=== PATIENT | male | born 1930 | race Caucasian/White ===

== ENCOUNTER 2016-04-18 10:39 | Emergency (ER) | payer OTHER ==
[2016-04-18] MEDS ORDERED: TETANUS AND DIPHTHERIA TOXOID 0.5 ML DISP.SYRIN IM ONE (10:50)
[2016-04-18 10:53] VITALS: TEMP 97.7; BMI 27.1
--- NOTE | 2016-04-18 11:08 | PDOC ---
History of Present Illness - General Chief Complaint: Injury Stated Complaint: FALL Time Seen by Provider: 04/18/16 10:49 History Source: Patient Exam Limitations: No Limitations - History of Present Illness Initial Comments: CHIEF COMPLAINT: 86 y/o afebrile male with PMH prostate problem BIB EMS after trip and fall with nose swelling and laceration. HISTORY OF PRESENT ILLNESS: The patient states he tripped on uneven pavement and fell, hitting his nose. He has nose pain with bleeding to external nose. He denies LOC, neck pain, changes in vision, n/v/d, loose teeth, bleeding from ears, dizziness, palpitations, CP, SOB, abd pain, back pain. He is refusing pain medication at this time. Vital signs on arrival are within normal limits. REVIEW OF SYSTEMS: GENERAL/CONSTITUTIONAL: No fever/chills. No weakness. No weight change. HEAD, EYES, EARS, NOSE AND THROAT: No change in vision. No ear pain or discharge. No sore throat. +nose pain and bleeding CARDIOVASCULAR: No chest pain or shortness of breath. RESPIRATORY: No cough, wheezing, or hemoptysis. GASTROINTESTINAL: No abd pain, nausea, vomiting, diarrhea. GENITOURINARY: No dysuria, frequency, or change in urination. MUSCULOSKELETAL: No joint or muscle swelling or pain. No neck or back pain. SKIN: No rash or easy bruising. NEUROLOGIC: No headache, vertigo, loss of consciousness, or loss of sensation. PHYSICAL EXAM: GENERAL: The patient is awake, alert, and fully oriented, in no acute distress. He is well appearing and pleasant. HEAD: Normal with no signs of trauma. ENT: Pupils equal, round and reactive to light, extraocular movements intact, sclera anicteric, conjunctiva clear. No hemotympanum b/l. TTP of bridge and base of nose with significant swelling. TTP of left orbit without crepitus or deformity. No raccoon eyes. Dried blood in b/l nares. very small irregular lac to left bridge of nose with active bleeding. Entire anterior nose is covered in abrasions. NECK: No midline cervical spine TTP or step offs. Full flexion and extension of cervical spine. LUNGS: Clear to auscultation bilaterally. Normal excursion. No respiratory distress or use of accessory muscles. CV: RRR, S1/S2, no MRG. Cap refill < 2 sec. ABDOMEN: Soft, non-distended, non-tender even to deep palpation, no hepatomegaly or splenomegaly, no masses. EXTREMITIES: Minimal swelling and TTP of right hand. NEUROLOGICAL: Normal speech, normal gait. CN II-XII grossly intact. PSYCH: Normal mood, normal affect. SKIN: Warm, dry, normal turgor, no rashes or lesions noted. Past History - Past Medical History Allergies/Adverse Reactions: Allergies Allergy/AdvReac Type Severity Reaction Status Date / Time No Known Allergies Allergy Verified 04/18/16 10:42 Home Medications: Ambulatory Orders Aspirin [ASA -] 81 mg PO DAILY 04/18/16 Oxycodone HCl/Acetaminophen [Percocet 5-325 mg Tablet] 1 tab PO Q6H #5 tablet MDD 3 04/18/16 Oxymetazoline 0.05% Nasal Soln [Afrin -] 2 spray NS BID #1 spraybtl 04/18/16 Procedures - Laceration/Wound Repair Nose Wound Length: to 2.5 cm Wound Explored: clean Wound's Depth, Shape: irregular Irrigated w/ Saline: Yes Betadine Prep: Yes Wound Repaired With: Sutures Suture Size/Type: 4:0 Number of Sutures: 1 Medical Decision Making - Medical Decision Making A/P: 86 y/o male with facial trauma s/p trip and fall. No LOC. No nausea. No neck pain. Plan is as follows: 1. Head CT 2. Facial bones CT 3. Tetanus 4. Xray right hand The patient is refusing pain medication at this time. CT scan IMPRESSION: No evidence of acute intracranial pathology. Bilateral nasal bone fractures right hand xray IMPRESSION: No acute pathology. Gave patient his results. applied 1 suture to bridge of nose to close laceration. Applied bacitracin to entire nose. Instructed the patient to avoid blowing his nose, use afrin spray to help with nasal congestion, f/u with Dr. Browning within 3 days, apply ice to his nose/eyes and return to the ER or his PCP for suture removal in 5 days. The patient verbalizes understanding of all instructions, has no further questions and is awaiting discharge. *DC/Admit/Observation/Transfer Diagnosis at time of Disposition: Nasal bone fractures - Discharge Dispostion Disposition: HOME Condition at time of disposition: Improved - Prescriptions Prescriptions: Oxymetazoline 0.05% Nasal Soln [Afrin -] 2 spray NS BID #1 spraybtl Oxycodone HCl/Acetaminophen [Percocet 5-325 mg Tablet] 1 tab PO Q6H #5 tablet MDD 3 - Referrals Referrals: Gaurav Reina MD [Primary Care Provider] - Pedro Browning MD [Staff Physician] - - Patient Instructions Printed Discharge Instructions: DI for Closed Head Injury, DI for Nose Fracture Additional Instructions: Discharge Instructions: -Take Tylenol for pain every 4 hours if needed; take Percocet at night for break through pain (this will cause drowsiness) -use Afrin nasal spray to help with nasal congestion -Do not blow your nose -Please call Dr. Browning tomorrow morning to schedule follow up appointment within 3 days -Return to the ER in 5 days to have suture removed -Keep nose clean and dry
--- NOTE | 2016-04-18 11:10 | PDOC ---
*Physical Exam - Vital Signs Last Vital Signs Temp Pulse Resp BP Pulse Ox 97.7 F 72 18 145/77 99 04/18/16 10:43 04/18/16 10:43 04/18/16 10:43 04/18/16 10:43 04/18/16 10:43 ED Treatment Course - Medications Given in the ED: ED Medications Discontinued Medications Generic Name Dose Route Start Last Admin Trade Name Freq PRN Reason Stop Dose Admin Tetanus/Diphtheria Toxoids Adsorbed 0.5 ml 04/18/16 10:50 04/18/16 11:00 Decavac - IM 04/18/16 10:51 0.5 ml .ONCE ONE Administration Medical Decision Making - Medical Decision Making 04/18/16 11:09 Pt seen by the Advanced Practice Provider under my direct supervision Ancillary studies reviewed I agree with plan as outlined by the Advanced Practice Provider ALVA Paige *DC/Admit/Observation/Transfer Diagnosis at time of Disposition: Nasal bone fractures - Discharge Dispostion Disposition: HOME Condition at time of disposition: Improved - Prescriptions Prescriptions: Oxymetazoline 0.05% Nasal Soln [Afrin -] 2 spray NS BID #1 spraybtl Oxycodone HCl/Acetaminophen [Percocet 5-325 mg Tablet] 1 tab PO Q6H #5 tablet MDD 3 - Referrals Referrals: Gaurav Reina MD [Primary Care Provider] - Pedro Browning MD [Staff Physician] - - Patient Instructions Printed Discharge Instructions: DI for Nose Fracture, DI for Closed Head Injury Additional Instructions: Discharge Instructions: -Take Tylenol for pain every 4 hours if needed; take Percocet at night for break through pain (this will cause drowsiness) -use Afrin nasal spray to help with nasal congestion -Do not blow your nose -Please call Dr. Browning tomorrow morning to schedule follow up appointment within 3 days -Return to the ER in 5 days to have suture removed -Keep nose clean and dry
[2016-04-18] MEDS ORDERED: IBUPROFEN 800 MG/8 ML IJ IVPB ONE (11:26)
[2016-04-18 13:09] VITALS: BP 155/84; PULSE 65
== END 2016-04-18 13:09 | disposition home or self-care (01) ==
LOC: SUPCPDRO 10:39 → JER 10:39
PROC: 09QKXZZ Repair Nasal Mucosa and Soft Tissue, External Approach (ICD-10-PCS; principal; 2016-04-18)
PROC: 3E0234Z Introduction of Serum, Toxoid and Vaccine into Muscle, Percutaneous Approach (ICD-10-PCS; 2016-04-18)
DX: S02.2XXA Fracture of nasal bones, initial encounter for closed fracture (principal); S01.21XA Laceration without foreign body of nose, initial encounter; W18.39XA Other fall on same level, initial encounter; Y93.89 Activity, other specified; Y92.480 Sidewalk as the place of occurrence of the external cause
CPT/HCPCS: 12011-25; 70450-TC; 70486-TC; 73130-TC-RT; 90471; 90715; 99283-25

== ENCOUNTER 2017-07-05 08:46 | Day surgery (SDC) | payer OTHER ==
[2017-07-05] MEDS ORDERED: IMMUNE GLOB,GAM CAPRYLATE(IGG) 20 GM IVPB ONE (09:30)
[2017-07-05 12:29] VITALS: TEMP 97.9
[2017-07-05 12:46] VITALS: BP 104/70; PULSE 57
== END 2017-07-05 12:49 | disposition home or self-care (01) ==
LOC: JINFUSION 08:46
PROVIDERS: ATTEND Psychiatry & Neurology Psychiatry
PROC: 3E033GC Introduction of Other Therapeutic Substance into Peripheral Vein, Percutaneous Approach (ICD-10-PCS; principal; 2017-07-05)
DX: G61.81 Chronic inflammatory demyelinating polyneuritis (principal)
CPT/HCPCS: 96365; 96366; J1561

== ENCOUNTER 2017-07-06 08:00 | Day surgery (SDC) | payer OTHER ==
[2017-07-06] MEDS ORDERED: IMMUNE GLOB,GAM CAPRYLATE(IGG) 40 GM, IMMUNE GLOBULIN (IgG) 10 GM IVPB ONE (09:00)
[2017-07-06 14:25] VITALS: TEMP 97.8
[2017-07-06 15:17] VITALS: BP 122/68; PULSE 53
== END 2017-07-06 15:20 | disposition home or self-care (01) ==
LOC: JINFUSION 08:00
PROVIDERS: ATTEND Psychiatry & Neurology Psychiatry
PROC: 3E033GC Introduction of Other Therapeutic Substance into Peripheral Vein, Percutaneous Approach (ICD-10-PCS; principal; 2017-07-06)
DX: G61.81 Chronic inflammatory demyelinating polyneuritis (principal)
CPT/HCPCS: 96365; 96366; J1561

== ENCOUNTER 2017-07-07 07:42 | Day surgery (SDC) | payer OTHER ==
[2017-07-07] MEDS ORDERED: IMMUNE GLOB GAM CAPRYLATE IVPB ONE (08:00)
[2017-07-07 14:54] VITALS: BP 131/81; PULSE 53; TEMP 98.1
== END 2017-07-07 15:04 | disposition home or self-care (01) ==
LOC: JINFUSION 07:42
PROVIDERS: ATTEND Psychiatry & Neurology Psychiatry
PROC: 3E033GC Introduction of Other Therapeutic Substance into Peripheral Vein, Percutaneous Approach (ICD-10-PCS; principal; 2017-07-07)
DX: G61.81 Chronic inflammatory demyelinating polyneuritis (principal)
CPT/HCPCS: 96365; 96366; J1561

== ENCOUNTER 2017-10-12 09:10 | Day surgery (SDC) | payer OTHER ==
[2017-10-12] MEDS ORDERED: IMMUNE GLOBULIN IVPB SCH (10:00)
[2017-10-12 13:13] VITALS: BP 117/66; PULSE 78; TEMP 98
== END 2017-10-12 13:37 | disposition home or self-care (01) ==
LOC: JINFUSION 09:10
PROVIDERS: ATTEND Psychiatry & Neurology Psychiatry
PROC: 3E033GC Introduction of Other Therapeutic Substance into Peripheral Vein, Percutaneous Approach (ICD-10-PCS; principal; 2017-10-12)
DX: G61.81 Chronic inflammatory demyelinating polyneuritis (principal)
CPT/HCPCS: 96365; 96366; J1561

== ENCOUNTER 2017-10-13 09:00 | Day surgery (SDC) | payer OTHER ==
[2017-10-13] MEDS ORDERED: IMMUNE GLOB,GAM CAPRYLATE(IGG) 60 GM/600 ML VIA IVPB ONE (09:30)
[2017-10-13 11:42] VITALS: BP 127/84; PULSE 61; TEMP 97.9
== END 2017-10-13 13:30 | disposition home or self-care (01) ==
LOC: JINFUSION 09:00
PROVIDERS: ATTEND Psychiatry & Neurology Psychiatry
PROC: 3E033GC Introduction of Other Therapeutic Substance into Peripheral Vein, Percutaneous Approach (ICD-10-PCS; principal; 2017-10-13)
DX: G61.81 Chronic inflammatory demyelinating polyneuritis (principal)
CPT/HCPCS: 96365; 96366

== ENCOUNTER 2017-11-08 18:12 | Observation (INO) | payer OTHER ==
[2017-11-08 19:20] VITALS: BMI 27.1
--- NOTE | 2017-11-08 19:38 | PDOC ---
History of Present Illness - General History Source: Patient Exam Limitations: No Limitations - History of Present Illness Initial Comments: 11/08/17 20:13 The patient is a 87 year old male, with a significant past medical history of prostate problem, neuropathy, and vertigo, who presents to the emergency department s/p sudden onset of dizziness while getting out of his car this afternoon. He states he felt like he was falling and then fell onto the [place] of his car. He denies LOC or head injury. He states he had to make multiple stops from his car to his apartment for fear of falling secondary to dizziness. He states he also developed nausea with associated retching, but denies emesis. He states he was not dizzy while driving. The patient also reports a headache which is not a typical associated symptom for his prior vertigo experiences. The patient denies chest pain, shortness of breath. The patient denies fever, chills, vomit, diarrhea and constipation. The patient denies dysuria, frequency , urgency and hematuria. Allergies: NKDA PCP: Dr. Reina <Jenn Law - Last Filed: 11/08/17 20:13> <Therese Landa - Last Filed: 11/08/17 23:17> - General Chief Complaint: Lightheaded Stated Complaint: NAUSEA Time Seen by Provider: 11/08/17 19:38 Past History <Jenn Law - Last Filed: 11/08/17 20:13> - Past Medical History COPD: No Other medical history: vertigo - Surgical History Abdominal Surgery: Yes Appendectomy: Yes - Suicide/Smoking/Psychosocial Hx Smoking History: Unknown if ever smoked Have you smoked in the past 12 months: No If you are a former smoker, when did you quit?: 1986 Information on smoking cessation initiated: No Hx Alcohol Use: No Drug/Substance Use Hx: No Substance Use Type: None <Therese Landa - Last Filed: 11/08/17 23:17> - Past Medical History Allergies/Adverse Reactions: Allergies Allergy/AdvReac Type Severity Reaction Status Date / Time No Known Allergies Allergy Verified 11/08/17 19:20 Home Medications: Ambulatory Orders Omeprazole 40 mg PO DAILY 07/05/17 Tamsulosin HCl 0.4 mg PO DAILY 07/05/17 Review of Systems - Review of Systems Able to Perform ROS?: Yes Comments:: 11/08/17 20:13 GENERAL/CONSTITUTIONAL: No fever or chills. No weakness. HEAD, EYES, EARS, NOSE AND THROAT: No change in vision. No ear pain or discharge. No sore throat. GASTROINTESTINAL: (+) nausea, No vomiting, diarrhea or constipation. GENITOURINARY: No dysuria, frequency, or change in urination. CARDIOVASCULAR: No chest pain or shortness of breath. RESPIRATORY: No cough, wheezing, or hemoptysis. MUSCULOSKELETAL: No joint or muscle swelling or pain. No neck or back pain. SKIN: No rash NEUROLOGIC: (+) headache and vertigo, No loss of consciousness, or change in strength/sensation. ENDOCRINE: No increased thirst. No abnormal weight change. HEMATOLOGIC/LYMPHATIC: No anemia, easy bleeding, or history of blood clots. ALLERGIC/IMMUNOLOGIC: No hives or skin allergy. <Jenn Law - Last Filed: 11/08/17 20:13> *Physical Exam - Vital Signs Last Vital Signs Temp Pulse Resp BP Pulse Ox 97.9 F 50 L 16 144/70 100 11/08/17 18:16 11/08/17 18:16 11/08/17 18:16 11/08/17 18:16 11/08/17 18:16 - Physical Exam Comments: 11/08/17 20:13 Constitutional: Awake, alert, oriented. No acute distress. Head: Normocephalic. Atraumatic Eyes: (+) mild right horizontal nystagmus PERRL. EOMI. Conjunctivae are not pale. ENT: Mucous membranes are moist and intact. Posterior pharynx without exudates or erythema. Uvula midline. Neck: Supple. Full ROM. No lymphadenopathy. Cardiovascular: Regular rate. Regular rhythm. S1, S2 regular. Distal pulses are 2+ and symmetric. Pulmonary/Chest: No evidence of respiratory distress. Clear to auscultation bilaterally No wheezing, rales or rhonchi. Abdominal: Soft and non-distended. There is no tenderness. No rebound, guarding or rigidity. No organomegaly. No palpable masses. Good bowel sounds. Back: No CVA tenderness. Musculoskeletal: No edema. No cyanosis. No clubbing. Full range of motion in all extremities. Nocalf tenderness. Radial/pedal pulses are intact and 2+ bilaterally Skin: Skin is warm and dry. No petechiae. No purpura. Neurological: (+) decreased sensation to bilateral lower extremities likely old due to neuropathy Hx. Alert and oriented to person, place, and time. Cranial nerves II-XII are grossly intact. Normal speech. Strength is grossly symmetric. No sensory deficits. Psychiatric: Good eye contact. Normal interaction, affect and behavior. <Jenn Law - Last Filed: 11/08/17 20:13> - Vital Signs Last Vital Signs Temp Pulse Resp BP Pulse Ox 97.9 F 50 L 16 144/70 100 11/08/17 18:16 11/08/17 18:16 11/08/17 18:16 11/08/17 18:16 11/08/17 18:16 <Therese Landa - Last Filed: 11/08/17 23:17> Heart Score/ECG Review - ECG Intrepretation Comment:: 11/08/17 23:16 sinus sarahy at 58, nl axis, nl interval, no acute st/t wave findings <Therese Landa - Last Filed: 11/08/17 23:17> ED Treatment Course - LABORATORY CBC & Chemistry Diagram: 11/08/17 20:39 11/08/17 20:39 <Therese Landa - Last Filed: 11/08/17 23:17> Medical Decision Making - Medical Decision Making 11/08/17 20:02 a/p: 87yo male with hx of vertigo presents today for an acute attack of vertigo and headache -pt neuro intact -R horizontal mild nystagmus -hx of vertigo but never had vertigo with a cast -will send labs, head ct, ekg, cxr, ua -neuro is Dr. Webster -PMD is Dr. Reina -pt currently vertiginous and nauseated -dry heaving in ED -will medicate for headache, vertigo, nausea -will monitor and reassess -currently npo given n/v -will most likely need to stay in obs pending head ct, new headache, and vertigo for eval of posterior circulation eval and poss MRI -will discuss with neuro pending head ct -fam at the bedside 11/08/17 22:21 -re-eval: still with dry heaving will remedicate still c/o dizziness will keep in obs pending neuro eval in the am consult placed to neurology 11/08/17 23:16 case discussed with Mary from [facility] who accepts pt to service <Therese Landa - Last Filed: 11/08/17 23:17> *DC/Admit/Observation/Transfer - Attestations Scribe Attestion: 11/08/17 20:14 Documentation prepared by Jenn Law, acting as medical case worker for Therese Landa DO <Jenn Law - Last Filed: 11/08/17 20:13> - Discharge Dispostion Decision to Admit order: Yes - Attestations Physician Attestion: 11/08/17 20:05 I, Dr. Therese Landa DO, attest that this document has been prepared under my direction and personally reviewed by me in its entirety. I further attest, that it accurately reflects all work, treatment, procedures and medical decision -making performed by me. <Therese Landa - Last Filed: 11/08/17 23:17> Diagnosis at time of Disposition: Dizziness, Nausea and vomiting - Discharge Dispostion Condition at time of disposition: Fair - Referrals Referrals: Gaurav Reina MD [Primary Care Provider] - - Patient Instructions - Post Discharge Activity
[2017-11-08] MEDS ORDERED: METOCLOPRAMIDE HCL INJECTION 10 MG/2 ML VIAL IVPUSH ONE (19:50)
[2017-11-08] MEDS ORDERED: SODIUM CHLORIDE 0.9% 1000 ML INFUS.BAG IV ONE (19:50)
[2017-11-08] MEDS ORDERED: MECLIZINE HCL 12.5 MG TABLET PO ONE (19:50)
[2017-11-08] MEDS ORDERED: METOCLOPRAMIDE HCL INJECTION 10 MG/2 ML VIAL ONE (20:52)
[2017-11-08] MEDS ORDERED: MECLIZINE HCL 12.5 MG TABLET ONE (20:52)
[2017-11-08 20:59] LABS: BASO % 0.3 % (0-2.0); EOS % 0.2 % (0-4.5); HEMATOCRIT 37.4 % (35.4-49); HEMOGLOBIN 13.3 GM/dL (11.7-16.9); LYMPH % 7.2 % (8-40); MCH 31.7 pg (25.7-33.7); MCHC 35.6 g/dl (32.0-35.9); MEAN CELL VOLUME 89.1 fl (80-96); MEAN PLT VOLUME 8.3 fl (7.5-11.1); MONO % 5.5 % (3.8-10.2); NEUT % 86.8 % (42.8-82.8); PLATELET COUNT 197 K/MM3 (134-434); RBC 4.19 M/mm3 (4.00-5.60); RDW 16.4 % (11.9-15.9); WHITE BLOOD COUNT 9.1 K/mm3 (4.0-10.0)
[2017-11-08 21:25] LABS: INR 1.05 (0.83-1.09); PROTHROMBIN TIME (PATIENT) 11.9 SEC (9.7-13.0)
[2017-11-08 21:43] LABS: ALBUMIN 3.7 g/dl (3.4-5.0); ANION GAP 9 MMOL/L (8-16); BLOOD UREA NITROGEN 17 mg/dL (7-18); CHLORIDE 103 mmol/L (98-107); CO2 27 mmol/L (21-32); CREATININE 1.1 mg/dL (0.7-1.3); GLUCOSE,RANDOM 108 mg/dL (74-106); MAGNESIUM 2.1 mg/dL (1.8-2.4); SGOT/AST 27 U/L (15-37); SGPT/ALT 33 U/L (12-78); SODIUM 139 mmol/L (136-145)
[2017-11-08 21:47] LABS: ALK PHOS 52 U/L (45-117); BILIRUBIN,TOTAL 1.2 mg/dL (0.2-1.0); TOT PROT 7.5 g/dl (6.4-8.2)
[2017-11-08] MEDS ORDERED: ONDANSETRON 4 MG/2 ML VIAL IVPUSH ONE (22:20)
[2017-11-08] MEDS ORDERED: ONDANSETRON 4 MG/2 ML VIAL ONE (22:22)
--- NOTE | 2017-11-08 23:21 | HP ---
CHIEF COMPLAINT: PCP: HISTORY OF PRESENT ILLNESS: ER course was notable for: (1) (2) (3) Recent Travel: PAST MEDICAL HISTORY: PAST SURGICAL HISTORY: Social History: Smoking: Alcohol: Drugs: Family History: Allergies No Known Allergies Allergy (Verified 11/08/17 19:20) HOME MEDICATIONS: Home Medications Medication Instructions Recorded Omeprazole 40 mg PO DAILY 07/05/17 Tamsulosin HCl 0.4 mg PO DAILY 07/05/17 REVIEW OF SYSTEMS CONSTITUTIONAL: Absent: fever, chills, diaphoresis, generalized weakness, malaise, loss of appetite, weight change HEENT: Absent: rhinorrhea, nasal congestion, throat pain, throat swelling, difficulty swallowing, mouth swelling, ear pain, eye pain, visual changes CARDIOVASCULAR: Absent: chest pain, syncope, palpitations, irregular heart rate, lightheadedness , peripheral edema RESPIRATORY: Absent: cough, shortness of breath, dyspnea with exertion, orthopnea, wheezing, stridor, hemoptysis GASTROINTESTINAL: Absent: abdominal pain, abdominal distension, nausea, vomiting, diarrhea, constipation, melena, hematochezia GENITOURINARY: Absent: dysuria, frequency, urgency, hesitancy, hematuria, flank pain, genital pain MUSCULOSKELETAL: Absent: myalgia, arthralgia, joint swelling, back pain, neck pain SKIN: Absent: rash, itching, pallor HEMATOLOGIC/IMMUNOLOGIC: Absent: easy bleeding, easy bruising, lymphadenopathy, frequent infections ENDOCRINE: Absent: unexplained weight gain, unexplained weight loss, heat intolerance, cold intolerance NEUROLOGIC: Absent: headache, focal weakness or paresthesias, dizziness, unsteady gait, seizure, mental status changes, bladder or bowel incontinence PSYCHIATRIC: Absent: anxiety, depression, suicidal or homicidal ideation, hallucinations. PHYSICAL EXAMINATION Vital Signs - 24 hr 11/08/17 11/08/17 18:16 23:06 Temperature 97.9 F Pulse Rate 50 L Pulse Rate [ 61 Apical] Respiratory 16 18 Rate Blood Pressure 144/70 Blood Pressure 138/72 [Right Arm] O2 Sat by Pulse 100 100 Oximetry (%) GENERAL: Awake, alert, and fully oriented, in no acute distress. HEAD: Normal with no signs of trauma. EYES: Pupils equal, round and reactive to light, extraocular movements intact, sclera anicteric, conjunctiva clear. No lid lag. EARS, NOSE, THROAT: Ears normal, nares patent, oropharynx clear without exudates. Moist mucous membranes. NECK: Normal range of motion, supple without lymphadenopathy, JVD, or masses. LUNGS: Breath sounds equal, clear to auscultation bilaterally. No wheezes, and no crackles. No accessory muscle use. HEART: Regular rate and rhythm, normal S1 and S2 without murmur, rub or gallop. ABDOMEN: Soft, nontender, not distended, normoactive bowel sounds, no guarding, no rebound, no masses. No hepatomegaly or splenomegaly. MUSCULOSKELETAL: Normal range of motion at all joints. No bony deformities or tenderness. No CVA tenderness. UPPER EXTREMITIES: 2+ pulses, warm, well-perfused. No cyanosis. No clubbing. No peripheral edema. LOWER EXTREMITIES: 2+ pulses, warm, well-perfused. No calf tenderness. No peripheral edema. NEUROLOGICAL: Cranial nerves II-XII intact. Normal speech. Normal gait. PSYCHIATRIC: Cooperative. Good eye contact. Appropriate mood and affect. SKIN: Warm, dry, normal turgor, no rashes or lesions noted, normal capillary refill. Laboratory Results - last 24 hr 11/08/17 11/08/17 11/08/17 20:39 20:39 20:39 WBC 9.1 RBC 4.19 Hgb 13.3 Hct 37.4 MCV 89.1 MCH 31.7 MCHC 35.6 RDW 16.4 H Plt Count 197 MPV 8.3 Absolute Neuts (auto) 7.9 Neutrophils % 86.8 H D Lymphocytes % 7.2 L D Monocytes % 5.5 Eosinophils % 0.2 D Basophils % 0.3 Nucleated RBC % 0 PT with INR 11.90 INR 1.05 Sodium 139 Potassium 4.0 Chloride 103 Carbon Dioxide 27 Anion Gap 9 BUN 17 Creatinine 1.1 Creat Clearance w eGFR > 60 Random Glucose 108 H D Calcium 9.0 Magnesium 2.1 Total Bilirubin 1.2 H AST 27 ALT 33 Alkaline Phosphatase 52 Creatine Kinase 122 Troponin I < 0.02 Total Protein 7.5 Albumin 3.7 ASSESSMENT/PLAN: Hospitalist Screening - Colonoscopy Questionnaire Colonoscopy Questionnaire: Colonoscopy Questionnaire
[2017-11-08] MEDS ORDERED: ONDANSETRON 4 MG/2 ML VIAL IVPUSH PRN (23:24)
[2017-11-08] MEDS: DEXTROSE 5%-0.45% SALINE 1,000 ML IV SCH (23:47)
[2017-11-09 01:33] LABS: URINE APPEARANCE CLEAR; URINE BILIRUBIN NEGATIVE (<2.0 mg/dL); URINE COLOR LTYELLOW; URINE GLUCOSE (UA) NEGATIVE (NEGATIVE); URINE KETONE NEGATIVE (NEGATIVE); URINE LEUK ESTERASE NEGATIVE (NEGATIVE); URINE NITRITE NEGATIVE (NEGATIVE); URINE PROTEIN NEGATIVE (NEGATIVE); URINE UROBILINOGEN NEGATIVE mg/dL (0.2-1.0)
[2017-11-09] MEDS: DEXTROSE 5%-0.45% SALINE 1,000 ML IV SCH (01:54)
[2017-11-09 07:56] LABS: BASO % 0.5 % (0-2.0); EOS % 1.2 % (0-4.5); HEMOGLOBIN 12.6 GM/dL (11.7-16.9); LYMPH % 18.3 % (8-40); MCH 30.7 pg (25.7-33.7); MCHC 34.2 g/dl (32.0-35.9); MEAN CELL VOLUME 89.9 fl (80-96); MEAN PLT VOLUME 8.2 fl (7.5-11.1); MONO % 9.1 % (3.8-10.2); NEUT % 70.9 % (42.8-82.8); PLATELET COUNT 176 K/MM3 (134-434); RBC 4.11 M/mm3 (4.00-5.60); RDW 16.1 % (11.9-15.9)
[2017-11-09 08:43] LABS: CHLORIDE 107 mmol/L (98-107); POTASSIUM 4.1 mmol/L (3.5-5.1); SODIUM 141 mmol/L (136-145)
--- NOTE | 2017-11-09 08:55 | CON.NEURO ---
Consult - Alcohol/Substance Use Hx Alcohol Use: No - Smoking History Smoking history: Former smoker Have you smoked in the past 12 months: No If you are a former smoker, when did you quit?: 1986 Home Medications - Allergies Allergies/Adverse Reactions: Allergies Allergy/AdvReac Type Severity Reaction Status Date / Time No Known Allergies Allergy Verified 11/08/17 19:20 - Home Medications Home Medications: Ambulatory Orders Omeprazole 40 mg PO DAILY 07/05/17 Tamsulosin HCl 0.4 mg PO DAILY 07/05/17 Physical Exam-Neuro Vital Signs: Vital Signs Temperature 98.3 F 11/09/17 06:00 Pulse Rate 73 11/09/17 06:00 Respiratory Rate 18 11/09/17 06:00 Blood Pressure 115/75 11/09/17 06:00 O2 Sat by Pulse Oximetry (%) 99 11/09/17 00:49 Labs: CBC, BMP 11/09/17 06:30 11/09/17 06:30 INR, PTT INR 1.05 (0.83-1.09) 11/08/17 20:39 Assessment/Plan CC Feeling of vertigo and imbalance HPI 87 yea rold male hstory of BPH, Neuropathy ( etiology unknown and was treated with IVIG) . Patient came to hospital for severe imbalance feeling. He describe as falling and feeling of imbalance. He has ct head done and it was unremarkable. He did have nausea but no vomiting. He was given zofran and meclizine. He is feeling better. He has similar symptom sin past but not this bad. PMH As above. PSH,ROS,FH,SH reviewed in chart Allergies: NKDA PCP: Dr. Reina - Past Medical History Allergies/Adverse Reactions: Allergies Allergy/AdvReac Type Severity Reaction Status Date / Time No Known Allergies Allergy Verified 11/08/17 19:20 Home Medications: Ambulatory Orders Omeprazole 40 mg PO DAILY 07/05/17 Tamsulosin HCl 0.4 mg PO DAILY 07/05/17 Neurological Examination Alert oriented x 3 EOMI, mild nystagmus on side to side eye movements was seen, pupils reactive no face asymmetry moving all extremity FTN is normal, strength is 5/5 all ext there is diminished sensation below knee and loss of knee and ankle reflex bilateraly CT head is unremarkable Assessment- Most likley BPPV, and it is getting better with zofran and meclizine Plan- suggest to continue Meclizine - He is getting better - primary team has planned MRI of brain and once mri of brain is normal and he is feeling better he can be discharged -PT will continue to follow with primray, feel free to call if any question Thanking you so much Car Berger MD
[2017-11-09 09:20] LABS: ANION GAP 7 MMOL/L (8-16); BLOOD UREA NITROGEN 14 mg/dL (7-18); CALCIUM 8.7 mg/dL (8.5-10.1); CO2 27 mmol/L (21-32); CREATININE 1.1 mg/dL (0.7-1.3); GLUCOSE,RANDOM 99 mg/dL (74-106)
--- NOTE | 2017-11-09 10:59 | PN ---
Progress Note (short form) - Note Progress Note: patient seen this am feels much better as per patient dizziness /nausea, vomiting - resolved Vital Signs Temp 98.3 F 11/09/17 06:00 Pulse 73 11/09/17 06:00 Resp 18 11/09/17 06:00 BP 115/75 11/09/17 06:00 Pulse Ox 99 11/09/17 00:49 Intake & Output 11/08/17 11/08/17 11/09/17 11:59 23:59 11:59 Intake Total 680 Balance 680 Weight 200 lb 200 lb Intake: IV 280 D5-1/2Ns - 1,000 ml @ 42 280 mls/hr IV ASDIR MAINE Rx#: [id number] Oral 400 Other: Voiding Method Urinal Urinal Height 6 ft 6 ft Body Mass Index (BMI) 27.1 27.1 Weight Measurement Method Standing Scale Active Medications Dextrose/Sodium Chloride (D5-1/2ns -) 1,000 mls @ 42 mls/hr IV ASDIR MAINE Last Admin: 11/09/17 01:54 Dose: 42 mls/hr Ondansetron HCl (Zofran Injection) 4 mg IVPUSH Q6H PRN PRN Reason: NAUSEA CBC,CMP WBC 7.0 K/mm3 (4.0-10.0) 11/09/17 06:30 RBC 4.11 M/mm3 (4.00-5.60) 11/09/17 06:30 Hgb 12.6 GM/dL (11.7-16.9) 11/09/17 06:30 Hct 37.0 % (35.4-49) 11/09/17 06:30 MCV 89.9 fl (80-96) 11/09/17 06:30 MCH 30.7 pg (25.7-33.7) 11/09/17 06:30 MCHC 34.2 g/dl (32.0-35.9) 11/09/17 06:30 RDW 16.1 % (11.9-15.9) H 11/09/17 06:30 Plt Count 176 K/MM3 (134-434) 11/09/17 06:30 MPV 8.2 fl (7.5-11.1) 11/09/17 06:30 Absolute Neuts (auto) 5.0 K/mm3 (1.5-8.0) 11/09/17 06:30 Neutrophils % 70.9 % (42.8-82.8) 11/09/17 06:30 Lymphocytes % 18.3 % (8-40) D 11/09/17 06:30 Monocytes % 9.1 % (3.8-10.2) 11/09/17 06:30 Eosinophils % 1.2 % (0-4.5) D 11/09/17 06:30 Basophils % 0.5 % (0-2.0) 11/09/17 06:30 Nucleated RBC % 0 % (0-0) 11/09/17 06:30 Sodium 141 mmol/L (136-145) 11/09/17 06:30 Potassium 4.1 mmol/L (3.5-5.1) 11/09/17 06:30 Chloride 107 mmol/L (98-107) 11/09/17 06:30 Carbon Dioxide 27 mmol/L (21-32) 11/09/17 06:30 Anion Gap 7 MMOL/L (8-16) L 11/09/17 06:30 BUN 14 mg/dL (7-18) 11/09/17 06:30 Creatinine 1.1 mg/dL (0.7-1.3) 11/09/17 06:30 Creat Clearance w eGFR > 60 (>60) 11/09/17 06:30 Random Glucose 99 mg/dL (74-106) 11/09/17 06:30 Calcium 8.7 mg/dL (8.5-10.1) 11/09/17 06:30 Magnesium 2.1 mg/dL (1.8-2.4) 11/08/17 20:39 Total Bilirubin 1.2 mg/dL (0.2-1.0) H 11/08/17 20:39 AST 27 U/L (15-37) 11/08/17 20:39 ALT 33 U/L (12-78) 11/08/17 20:39 Alkaline Phosphatase 52 U/L (45-117) 11/08/17 20:39 Creatine Kinase 122 IU/L (39-308) 11/08/17 20:39 Troponin I < 0.02 ng/ml (0.00-0.05) 11/08/17 20:39 Total Protein 7.5 g/dl (6.4-8.2) 11/08/17 20:39 Albumin 3.7 g/dl (3.4-5.0) 11/08/17 20:39 N- alert, oriented cvs-s1s2 lungs- clear abd-soft,nt le- no edema A/P 87 year old man with h/o vertigo most likely BPPV CT head- noted neuro eval appreciated MRI PENDING patient clinically better after zofran and meclizine discussed with dr lilly
[2017-11-09] MEDS: TAMSULOSIN HCL 0.4 MG CAP.ER.24H (FP) PO SCH (11:48)
[2017-11-09] MEDS: PANTOPRAZOLE 40 MG TABLET (FP) PO SCH (11:48)
--- NOTE | 2017-11-09 20:20 | EKG ---
Test Reason : Blood Pressure : / mmHG Vent. Rate : 058 BPM Atrial Rate : 058 BPM P-R Int : 182 ms QRS Dur : 130 ms QT Int : 452 ms P-R-T Axes : 034 046 049 degrees QTc Int : 443 ms SINUS BRADYCARDIA RIGHT BUNDLE BRANCH BLOCK ABNORMAL ECG NO PREVIOUS ECGS AVAILABLE Confirmed by KIM FARMER, MYNOR ([id number]) on 11/09/2017 8:20:09 PM Referred By: Confirmed By:MYNOR ALVAREZ MD
[2017-11-09] MEDS ORDERED: PT OWN MED DRAWER 7, Y5N ONE (20:44)
[2017-11-09] MEDS: MECLIZINE HCL 12.5 MG TABLET PO PRN (20:48)
[2017-11-10] MEDS: PANTOPRAZOLE 40 MG TABLET (FP) PO SCH (09:08)
[2017-11-10] MEDS: TAMSULOSIN HCL 0.4 MG CAP.ER.24H (FP) PO SCH (09:08)
[2017-11-10] MEDS: MECLIZINE HCL 12.5 MG TABLET PO PRN (09:08)
[2017-11-10] MEDS: DEXTROSE 5%-0.45% SALINE 1,000 ML IV SCH (09:08)
--- NOTE | 2017-11-10 10:43 | PN ---
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 Patient came to hospital for severe imbalance feeling. He describe as falling and feeling of imbalance. He has ct head done and it was unremarkable. He did have nausea but no vomiting. He was given zofran and meclizine. He is feeling better. He has dizziness on standing and at rest he is not feeling vertigo sensation Neurological Examination Alert oriented x 3 EOMI, mild nystagmus on side to side eye movements was seen, pupils reactive no face asymmetry moving all extremity FTN is normal, strength is 5/5 all ext there is diminished sensation below knee and loss of knee and ankle reflex bilateraly CT head is unremarkable mri of brain did not show any acute findings Assessment- Most likley BPPV, and it is getting better with zofran and meclizine , mri of brain unremarkable Plan- suggest to continue Meclizine prn - PT , while here - He may need rehab /PT outpatient Thanking you so much Car Berger MD
--- NOTE | 2017-11-10 11:49 | DS ---
Physical Examination Vital Signs: Vital Signs Temperature 97.8 F 11/10/17 05:35 Pulse Rate 54 L 11/10/17 05:35 Respiratory Rate 20 11/10/17 05:35 Blood Pressure 110/63 11/10/17 05:35 O2 Sat by Pulse Oximetry (%) 99 11/10/17 05:00 Findings/Remarks: pt seen/ examined chart reviewed feels better Constitutional: Yes: No Distress, Calm Eyes: Yes: WNL, PERRL Neck: Yes: WNL, Supple Cardiovascular: Yes: Regular Rate and Rhythm Respiratory: Yes: CTA Bilaterally Gastrointestinal: Yes: Soft Edema: No Neurological: Yes: WNL, Alert Psychiatric: Yes: Alert Labs: CBC, BMP 11/09/17 06:30 11/09/17 06:30 Discharge Summary Reason For Visit: DIZZINESS Current Active Problems Dizziness (Acute) Nausea and vomiting (Acute) Hospital Course: Admitted for dizziness work up -ve for acute pathology Neurology consult taken. urbano BPV stable for d/c d/c on antivert meds reconcilled pt advised to follow with his pmd in one week Pt in agreement Condition: Stable - Instructions Referrals: Gaurav Reina MD [Primary Care Provider] - Disposition: HOME - Home Medications Comprehensive Discharge Medication List: Ambulatory Orders Omeprazole 40 mg PO DAILY 07/05/17 Tamsulosin HCl 0.4 mg PO DAILY 07/05/17 Meclizine HCl [Antivert -] 12.5 mg PO BID 30 Days #60 tablet 11/10/17
[2017-11-10 12:56] VITALS: BP 107/60; PULSE 60; TEMP 98
== END 2017-11-10 14:09 | disposition home or self-care (01) ==
LOC: JER 18:12 → JERBED 22:23 → UNDOADMOB 23:24 → J4S 11-09 01:51
PROVIDERS: ADMIT Internal Medicine; ATTEND Internal Medicine
PROC: 3E033GC Introduction of Other Therapeutic Substance into Peripheral Vein, Percutaneous Approach (ICD-10-PCS; principal; 2017-11-08)
PROC: 3E0337Z Introduction of Electrolytic and Water Balance Substance into Peripheral Vein, Percutaneous Approach (ICD-10-PCS; 2017-11-08)
DX: R42 Dizziness and giddiness (principal); R11.2 Nausea with vomiting, unspecified; N40.0 Benign prostatic hyperplasia without lower urinary tract symptoms; G62.9 Polyneuropathy, unspecified; Z87.891 Personal history of nicotine dependence
CPT/HCPCS: 36415; 70450-TC; 70551-TC; 71045-TC-FY; 73562-TC-RT-FY; 80048; 80053; 81003; 82550; 83735; 84484; 85025; 85610; 93005; 93010; 96374; 96375; 97116-GP; 97162-GP; 99283-25; G0378; J7030

== ENCOUNTER 2018-02-15 08:29 | Day surgery (SDC) | payer OTHER, MEDICARE ==
[2018-02-15] MEDS ORDERED: methylPREDNISolone NA SUCC 40 MG/1 ML VIAL ONE (09:03)
[2018-02-15] MEDS ORDERED: diphenhydrAMINE HCL 25 MG CAPSULE (FP) PO ONE ×2 (09:04→09:30)
[2018-02-15] MEDS ORDERED: ACETAMINOPHEN 325 MG TABLET (FP) ONE ×2 (09:05→09:06)
[2018-02-15] MEDS ORDERED: ACETAMINOPHEN 325 MG TABLET (FP) PO ONE (09:30)
[2018-02-15] MEDS ORDERED: methylPREDNISolone NA SUCC 125 MG/2 ML VIAL IVPB ONE (09:30)
[2018-02-15] MEDS ORDERED: IMMUNE GLOB,GAM CAPRYLATE(IGG) 60 GM/600 ML VIA IVPB ONE (10:00)
[2018-02-15 12:51] VITALS: PULSE 58
[2018-02-15 15:02] VITALS: BP 103/77; TEMP 97.5
== END 2018-02-15 15:31 | disposition home or self-care (01) ==
LOC: JINFUSION 08:29
PROVIDERS: ATTEND Psychiatry & Neurology Psychiatry
PROC: 3E033GC Introduction of Other Therapeutic Substance into Peripheral Vein, Percutaneous Approach (ICD-10-PCS; principal; 2018-02-15)
DX: G61.81 Chronic inflammatory demyelinating polyneuritis (principal)
CPT/HCPCS: 96365; 96366; J1561

== ENCOUNTER 2018-02-16 08:48 | Day surgery (SDC) | payer OTHER, MEDICARE ==
[~2018-02-16 08:48] MED LIST: ACETAMINOPHEN 325 MG TABLET (FP) PO ONE; diphenhydrAMINE HCL 25 MG CAPSULE (FP) PO ONE; methylPREDNISolone NA SUCC 125 MG/2 ML VIAL IVPB ONE
[2018-02-16] MEDS ORDERED: IMMUNE GLOB,GAM CAPRYLATE(IGG) 60 GM/600 ML VIA IVPB ONE (09:00)
[2018-02-16] MEDS ORDERED: methylPREDNISolone NA SUCC 40 MG/1 ML VIAL ONE (09:04)
[2018-02-16] MEDS ORDERED: ACETAMINOPHEN 325 MG TABLET (FP) ONE (09:04)
[2018-02-16] MEDS ORDERED: diphenhydrAMINE HCL 25 MG CAPSULE (FP) PO ONE (09:04)
[2018-02-16] MEDS ORDERED: SODIUM CHLORIDE 100 ML IVPB ONE (09:16)
[2018-02-16 12:29] VITALS: PULSE 62
[2018-02-16 14:29] VITALS: BP 116/58; TEMP 97.4
== END 2018-02-16 14:29 | disposition home or self-care (01) ==
LOC: JINFUSION 08:48
PROVIDERS: ATTEND Psychiatry & Neurology Psychiatry
PROC: 3E033GC Introduction of Other Therapeutic Substance into Peripheral Vein, Percutaneous Approach (ICD-10-PCS; principal; 2018-02-16)
DX: G61.81 Chronic inflammatory demyelinating polyneuritis (principal)
CPT/HCPCS: 96365; 96366; J1561

== ENCOUNTER 2018-09-02 09:12 | Emergency (ER) | payer OTHER, MEDICARE | END 2018-09-02 11:08 | disposition home or self-care (01) | LOC: JERFT 09:12 ==

== ENCOUNTER 2018-09-07 11:45 | Inpatient (IN) | payer OTHER, MEDICARE | END 2018-09-12 17:52 | LOC: JER 11:45 → JERBED 15:02 → J6S 17:52 ==